=== PATIENT | female | born 1970 | race Two or more races ===

== ENCOUNTER 2017-03-17 21:25 | Emergency (ER) | payer SELFPAY ==
[~2017-03-17] VITALS: Ht 165.1 cm; Wt 74.8 kg
[2017-03-17] MEDS ORDERED: ALBUTEROL2.5 MG/3 M INH (21:40)
[2017-03-17] MEDS ORDERED: Ketorolac 30mg Inj IV ONE (22:15)
[2017-03-17] MEDS ORDERED: Neosporin Oint Ud Pkt TOP ONE (22:15)
[2017-03-17] MEDS ORDERED: Morphine Sulfate 4mg/ml Inj IVP ONE (22:15)
[2017-03-17] MEDS ORDERED: Tetanus/Diptheria/Pertussis Vaccine 0.5ml Syr IM ONE (22:15)
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
[2017-03-17 22:44] LABS: MEAN CORPUSCULAR HEMOGLOBIN 25.5 PG (27.0-31.0); MEAN CORPUSCULAR VOLUME 80 FL (80-99); MEAN PLATELET VOLUME 6.7 FL (6.5-10.1); PLATELET COUNT 315 K/UL (150-450); RED BLOOD COUNT 4.31 M/UL (4.20-5.40); RED CELL DISTRIBUTION WIDTH 15.2 % (11.6-14.8); WHITE BLOOD COUNT 21.4 K/UL (4.8-10.8)
[2017-03-17 22:54] LABS: PROTHROMBIN TIME 10.1 SEC (9.30-11.50)
[2017-03-17 22:58] LABS: ALANINE AMINOTRANSFERASE 16 U/L (3-33); ANION GAP 11 (5-15); ASPARTATE AMINO TRANSFERASE 26 U/L (5-40); CALCIUM 8.8 mg/dL (8.6-10.2); CARBON DIOXIDE 26 mEQ/L (20-30); CHLORIDE 99 mEQ/L (98-107); CREATININE 0.7 mg/dL (0.5-0.9); GLOMERULAR FILTRATION RATE > 60 mL/min (>60); HEMOLYSIS 6; POTASSIUM 3.3 mEQ/L (3.4-4.9); SODIUM 136 mEQ/L (135-145)
[2017-03-17 23:15] LABS: ALBUMIN/GLOBULIN RATIO 1.7 (1.0-2.7); TOTAL PROTEIN 7.6 g/dL (6.6-8.7)
[2017-03-17 23:17] LABS: ANISOCYTOSIS 1+; BAND NEUTROPHILS % (MANUAL) 3 % (0-8); BASOPHILS % (MANUAL) 0 % (0-2); EOSINOPHILS % (MANUAL) 1 % (0-3); LYMPHOCYTES % (MANUAL) 7 % (20-45); NEUTROPHILS % (MANUAL) 85 % (45-75); PLATELET ESTIMATE ADEQUATE; TOTAL CELLS COUNTED 100
[2017-03-17 23:18] LABS: MICROCYTES 1+; PLATELET MORPHOLOGY NORMAL; POLYCHROMASIA 1+
[2017-03-17 23:37] VITALS: BP 130/69
[2017-03-18 00:35] LABS: KETONES,URINE NEGATIVE (NEGATIVE); LEUKOCYTE ESTERASE ,URINE 3+ (NEGATIVE); NITRITE,URINE NEGATIVE (NEGATIVE); PH,URINE 6.5 (4.5-8.0); PROTEIN,URINE NEGATIVE (NEGATIVE); UROBILINOGEN,URINE NORMAL MG/DL (0.0-1.0)
[2017-03-18 00:51] LABS: APPEARANCE,URINE SLIGHTLY CLOUDY
[2017-03-18 00:53] LABS: BACTERIA,URINE FEW /HPF; SQUAMOUS EPITHELIAL CELL,UR MANY /LPF (NONE/OCC); WBC,URINE 60-80 /HPF (0 - 2)
[2017-03-18] MEDS ORDERED: Morphine Sulfate 4mg/ml Inj IVP ONE (01:00)
[2017-03-18] MEDS ORDERED: cefTRIAXone 1 GM in NS 55 ML IVPB ONE (01:00)
[2017-03-18 01:38] VITALS: BP 114/58
[2017-03-18 04:00] VITALS: BP 101/52
[2017-03-18] MEDS ORDERED: fentaNYL 100 mcg/2 mL IV ONE (04:00)
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
== END 2017-03-18 04:00 | disposition short-term general hospital (02) ==
LOC: EMR 22:08
DX: S22.22XA Fracture of body of sternum, initial encounter for closed fracture (principal); S60.221A Contusion of right hand, initial encounter; S22.038A Other fracture of third thoracic vertebra, initial encounter for closed fracture; S61.212A Laceration without foreign body of right middle finger without damage to nail, initial encounter; V49.40XA Driver injured in collision with unspecified motor vehicles in traffic accident, initial encounter; Y92.410 Unspecified street and highway as the place of occurrence of the external cause; Z23 Encounter for immunization; N39.0 Urinary tract infection, site not specified; J45.909 Unspecified asthma, uncomplicated; D72.829 Elevated white blood cell count, unspecified
CPT/HCPCS: 36415; 71260; 73030; 73130; 74177; 80053; 81003; 85007; 85025; 85610; 85730; 87086; 90471; 90715; 93005; 96365; 96366; 96374; 96375; 99285; J0696; J1885; J2270; J2405; J3010; Q9967